=== PATIENT | female | born 1990 | race Caucasian/White ===

== ENCOUNTER 2018-11-18 09:16 | Emergency (ER) | payer OTHER ==
[~2018-11-18] VITALS: Ht 157.5 cm; Wt 59.1 kg
[~2018-11-18 09:16] MED LIST: HYDR-4011 PO; IBUP-1542 PO
[2018-11-18 09:30] VITALS: Ht 157.5 cm; Wt 59.1 kg
[2018-11-18 12:48] VITALS: BP 110/55; PULSE 70; RESP 18
== END 2018-11-18 12:50 | disposition home or self-care (01) ==
LOC: FTE 09:16
DX: S99.922A Unspecified injury of left foot, initial encounter (principal); W22.8XXA Striking against or struck by other objects, initial encounter; Y92.89 Other specified places as the place of occurrence of the external cause
CPT/HCPCS: 73610; 73630; 81025